=== PATIENT | male | born 1955 | race African-American/Black ===

== ENCOUNTER 2016-10-10 19:20 | Emergency (ER) | payer OTHER ==
[~2016-10-10] VITALS: Ht 172.7 cm; Wt 80.6 kg
[~2016-10-10 19:20] MED LIST: IBUPROFEN800 MG PO; KEFLEX500 MG PO; MOTRIN600 MG/TAB PO; NAPROSYN500 MG PO; TYLENOL # 31 TA1 PO
[2016-10-10] MEDS ORDERED: BACTRIM DS1 TAB PO (20:33)
[2016-10-10] MEDS ORDERED: KEFLEX500 M1 PO (20:33)
[2016-10-10 21:02] VITALS: BP 165/85
== END 2016-10-10 21:02 | disposition home or self-care (01) | DRG 603 ==
LOC: ED 19:20
PROC: 0HDKXZZ Extraction of Right Lower Leg Skin, External Approach (ICD-10-PCS; principal; 2016-10-10)
DX: L02.415 Cutaneous abscess of right lower limb (principal); B95.62 Methicillin resistant Staphylococcus aureus infection as the cause of diseases classified elsewhere